=== PATIENT | male | born 1930 | race Hispanic/Latino ===

== ENCOUNTER → 2019-04-06 | Day surgery (SDC) | payer MEDICARE, OTHER ==
[2019-04-04 14:09] LABS: BASOPHILS % 0.5 % (0.0-1.0); EOSINOPHILS # (AUTO) 0.1 (0.0-0.4); EOSINOPHILS % 1.2 % (0.0-6.0); HEMATOCRIT 41.6 % (38.2-49.6); HEMOGLOBIN 14.2 g/dL (14.0-18.0); LYMPHOCYTES # (AUTO) 1.2 (1.0-3.2); LYMPHOCYTES % 19.9 % (18.0-39.1); MEAN CORPUSCULAR HEMOGLOBIN 30.6 pg (28-32); MEAN CORPUSCULAR HGB CONC 34.1 g/dL (31-35); MEAN CORPUSCULAR VOLUME 89.7 fL (81-99); MONOCYTES # (AUTO) 0.7 (0.2-0.8); MONOCYTES % 10.8 % (4.4-11.3); NEUTROPHILS # (AUTO) 4.1 (2.1-6.9); NEUTROPHILS % 67.1 % (38.7-80.0); PLATELET COUNT 118 x10e3/uL (140-360); RED BLOOD COUNT 4.64 x10e6/uL (4.3-5.7); RED CELL DISTRIBUTION WIDTH 14.6 % (11.7-14.4)
[~2019-04-06] MED LIST: CIPRO500 MG PO; FENTANYL CITRATE/PF 100MCG/2 ML INJ ONE; FINASTERIDE5 MG PO; GLIMEPIRIDE2 MG PO; LEVOTHYROXINE100 MC1 PO; LIDOCAINE HCL 2% LOCAL INJ 5 ML SDV VIAL INJ ONE; LOSARTAN-HCTZ1 EAC2 PO; LOVASTATIN20 MG PO; METOPROLOL TART50 MG PO; MIDAZOLAM HCL 2 MG/2 ML VIAL ONE; PROPOFOL IV EMULSION 10 MG/ML 50 ML VIAL ONE
--- OUTSIDE RECORDS SUMMARY | 2019-04-06 11:46 | XMS REPORT | Summary of Care ---
Author Organization Unknown Address Unknown Phone Unavailable Encounter HQ Adam_davian(NATHAN) [id number] Date(s): 05/24/14 - 05/24/[address] [facility] [address] Discharge Disposition: Home Physician Attending: Aidan Silva MD Physician_Referring: Aidan Silva MD Reason for Visit ICD 553.1 784.2 / CPT 22919 96970 Vital Signs 1 2 3 Most recent to oldest [Reference Range]: 165.1 cm (05/22/14 1:02 PM) Height 97.6 DegF (05/22/14 1:19 PM) Temperature Oral [96.4-99.1 DegF] 147 mmHg *HI* (05/24/14 11:50 AM) 146 mmHg *HI* (05/24/14 11:37 AM) 153 mmHg *HI* (05/24/14 11:00 AM) Systolic Blood Pressure [90-140 mmHg] 69 mmHg (05/24/14 11:50 AM) 70 mmHg (05/24/14 11:37 AM) 85 mmHg (05/24/14 11:00 AM) Diastolic Blood Pressure [60-90 mmHg] 20 BRMIN (05/24/14 11:50 AM) 16 BRMIN (05/24/14 11:37 AM) 13 BRMIN *LOW* (05/24/14 11:00 AM) Respiratory Rate [14-20 BRMIN] 64 bpm (05/22/14 1:19 PM) Peripheral Pulse Rate [60-100 bpm] 77.273 kg (05/22/14 1:02 PM) Weight 28.35 m2 (05/22/14 1:02 PM) Body Mass Index Problem List Condition Effective Dates Status Health Status Informant Cholesterol Resolved level(Confirmed)1 Diabetes mellitus Resolved type 2(Confirmed) Hypertension(Confirm Resolved ed) Hypothyroidism(Confi Resolved rmed) Impaired Resolved hearing(Confirmed) 1high Allergies, Adverse Reactions, Alerts Substance Reaction Severity Status NKDA Active Medications acetaminophen-hydrocodone 325 mg-5 mg oral tablet 1 tab, PO, Q6H, # 15 tab, 0 Refill(s) Start Date: 05/24/14 Status: Ordered amLODIPine 5 mg, PO, Daily, 0 Refill(s) Start Date: 05/22/14 Status: Ordered Ancef 2 gm, Route: IVPB, ONCE, Dosing Weight 77.273, kg, Start date: 05/24/14 8:24:00, Duration: 1 doses or times, Stop date: 05/24/14 8:24:00 Start Date: 05/24/14 Stop Date: 05/24/14 Status: Completed bacitracin 3.5 gm, BOTH EYES, BID, apply to upper eyelid, 0 Refill(s) Special Instructions: apply to upper eyelid Start Date: 05/22/14 Status: Ordered fentaNYL 25 microgram, Route: IVP, Q5Min, Dosing Weight 77.273, kg, PRN Pain Score 4-6, S tart date: 05/24/14 11:31:00, Duration: 4 doses or times, Stop date: Limited # o f times Start Date: 05/24/14 Stop Date: 05/24/14 Status: Discontinued flumazenil 0.2 mg, Route: IVP, PRN, Dosing Weight 77.273, kg, PRN Benzodiazepine Reversal, Initial dose, Start date: 05/24/14 11:31:00, Duration: 30 day, Stop date: 11:30:00 Start Date: 05/24/14 Stop Date: 05/24/14 Status: Discontinued hydrochlorothiazide-valsartan 12.5 mg-320 mg oral tablet 1 tab, PO, Daily, # 30 tab, 0 Refill(s) Start Date: 05/22/14 Status: Ordered hydromorphone 0.5 mg, Route: IVP, Q5Min, Dosing Weight 77.273, kg, PRN Pain Score 7-10, Start date: 05/24/14 11:31:00, Duration: 4 doses or times, Stop date: Limited # of starla es Start Date: 05/24/14 Stop Date: 05/24/14 Status: Discontinued Lactated Ringers Injection IV 1000 mL 1,000 mL, Rate: 25 ml/hr, Infuse over: 40 hr, Route: IV, Dosing Weight 77.273 kg , Total Volume: 1,000, Start date: 05/24/14 8:23:00, Duration: 30 day, Stop date : 06/23/14 8:22:00 Start Date: 05/24/14 Stop Date: 05/24/14 Status: Discontinued levothyroxine 100 mcg (0.1 mg) oral tablet 100 microgram=1 tab, PO, Daily, # 30 tab, 0 Refill(s) Start Date: 05/22/14 Status: Ordered meperidine 12.5 mg, Route: IVP, Q30Min, Dosing Weight 77.273, kg, PRN Other -See Comment, F or shivering, Start date: 05/24/14 11:31:00, Duration: 2 doses or times, Stop da te: Limited # of times Start Date: 05/24/14 Stop Date: 05/24/14 Status: Discontinued metoprolol tartrate 100 mg oral tablet 100 mg=1 tab, PO, Daily, 0 Refill(s) Start Date: 05/22/14 Status: Ordered naloxone 0.04 mg, Route: IVP, Q2MIN, Dosing Weight 77.273, kg, PRN Narcotic Reversal, Sta rt date: 05/24/14 11:31:00, Duration: 8 doses or times, Stop date: Limited # of times Start Date: 05/24/14 Stop Date: 05/24/14 Status: Discontinued [place] 10/325 oral tablet 1 tab, Route: PO, Drug Form: TAB, Dosing Weight 77.273, kg, Q4H, PRN Pain, Start date: 05/24/14 11:31:00, Duration: 30 day, Stop date: 06/23/14 11:30:00 Start Date: 05/24/14 Stop Date: 05/24/14 Status: Discontinued Ofirmev 1,000 mg, Route: IV, Drug form: INJ, ONCE, Dosing Weight 77.273, kg, PRN Pain, f or > or=50 kg, Start date: 05/24/14 11:31:00 Start Date: 05/24/14 Stop Date: 05/24/14 Status: Discontinued ondansetron 4 mg, Route: IVP, ONCE, Dosing Weight 77.273, kg, PRN Nausea & Vomiting, Start date: 05/24/14 11:31:00 Start Date: 05/24/14 Stop Date: 05/24/14 Status: Discontinued oxyCODONE 5 mg, Route: PO, Drug form: TAB, Q4H, Dosing Weight 77.273, kg, PRN Pain Score 4 -6, Start date: 05/24/14 11:31:00, Duration: 30 day, Stop date: 06/23/14 11:30:0 0 Start Date: 05/24/14 Stop Date: 05/24/14 Status: Discontinued terbinafine 250 mg oral tablet 250 mg=1 tab, PO, Daily, # 10 tab, 0 Refill(s) Start Date: 05/22/14 Stop Date: 06/01/14 Status: Ordered Results ELECTROLYTES Most recent to 1 oldest [Reference Range]: Sodium Lvl [135-145 142 mEq/L mEq/L] (05/22/14 1:28 PM) Potassium Lvl 3.9 mEq/L [3.5-5.1 mEq/L] (05/22/14 1:28 PM) Chloride Lvl [95-109 105 mEq/L mEq/L] (05/22/14 1:28 PM) CO2 [24-32 mEq/L] 32 mEq/L (05/22/14 1:28 PM) AGAP [10.0-20.0 8.9 mEq/L mEq/L] *LOW* (05/22/14 1:28 PM) CHEM PANEL Most recent to 1 oldest [Reference Range]: Creatinine Lvl 1.4 mg/dL [0.5-1.4 mg/dL] (05/22/14 1:28 PM) eGFR 46 mL/min/1.73m2 1 *NA* (05/22/14 1:28 PM) BUN [7-22 mg/dL] 18 mg/dL (05/22/14 1:28 PM) B/C Ratio [6-25] 13 (05/22/14 1:28 PM) Glucose Lvl [70-99 129 mg/dL 2 mg/dL] *HI* (05/22/14 1:28 PM) Total Protein 6.7 g/dL [6.4-8.4 g/dL] (05/22/14 1:28 PM) Albumin Lvl [3.5-5.0 4.0 g/dL g/dL] (05/22/14 1:28 PM) Globulin [2.0-4.0 2.7 g/dL g/dL] (05/22/14 1:28 PM) A/G Ratio [0.7-1.6] 1.5 (05/22/14 1:28 PM) Calcium Lvl 8.8 mg/dL [8.5-10.5 mg/dL] (05/22/14 1:28 PM) ALT [0-65 unit/L] 15 unit/L (05/22/14 1:28 PM) AST [0-37 unit/L] 19 unit/L (05/22/14 1:28 PM) Alk Phos [39-136 63 unit/L unit/L] (05/22/14 1:28 PM) Bili Total [0.2-1.3 0.6 mg/dL mg/dL] (05/22/14 1:28 PM) 1Result Comment: The eGFR is calculated using the CKD-EPI formula. In most young, healthy individuals the eGFR will be >90 mL/min/1.73m2. The eGFR declines with age. An eGFR of 60-89 may be normal in some populations, particularly the elderly, for whom the CKD-EPI formula has not been extensively validated. Use of the eGFR is not recommended in the following populations: Individuals with unstable creatinine concentrations, including patients and those with serious co-morbid conditions. Patients with extremes in muscle mass or diet. The data above are obtained from the National Kidney Disease Education Program ( NKDEP) which additionally recommends that when the eGFR is used in patients with extremes of body mass index for purposes of drug dosing, the eGFR should be mul tiplied by the estimated BMI. 2Interpretive Data: Adult reference range values reflect the clinical guidelines of the [place] [employer]. HEMATOLOGY Most recent to 1 oldest [Reference Range]: WBC [3.7-10.4 K/CMM] 4.1 K/CMM (05/22/14 1:28 PM) RBC [4.70-6.10 5.16 M/CMM M/CMM] (05/22/14 1:28 PM) Hgb [14.0-18.0 g/dL] 15.5 g/dL (05/22/14 1:28 PM) Hct [42.0-54.0 %] 46.0 % (05/22/14 1:28 PM) MCV [80.0-94.0 fL] 89.1 fL (05/22/14 1:28 PM) MCH [27.0-31.0 pg] 30.1 pg (05/22/14 1: PM) MCHC [32.0-36.0 33.8 g/dL g/dL] (05/22/14 1:28 PM) RDW [11.5-14.5 %] 14.7 % *HI* (05/22/14 1: PM) Platelet [133-450 108 K/CMM K/CMM] *LOW* (05/22/14 1:28 PM) MPV [7.4-10.4 fL] 11.4 fL *HI* (05/22/14 1:28 PM) Segs [45.0-75.0 %] 53.7 % (05/22/14 1:28 PM) Lymphocytes 26.6 % [20.0-40.0 %] (05/22/14 1:28 PM) Monocytes [2.0-12.0 18.4 % %] *HI* (05/22/14 1:28 PM) Eosinophils [0.0-4.0 0.6 % %] (05/22/14 1:28 PM) Basophils [0.0-1.0 0.7 % %] (05/22/14 1:28 PM) Segs-Bands # 2.2 K/CMM [1.5-8.1 K/CMM] (05/22/14 1:28 PM) Lymphocytes # 1.1 K/CMM [1.0-5.5 K/CMM] (05/22/14 1:28 PM) Monocytes # [0.0-0.8 0.8 K/CMM K/CMM] (05/22/14 1:28 PM) RBC Morph Normal (05/22/14 1:28 PM) Large Plt [None Slight Seen] *ABN* (05/22/14 1:28 PM) Medications Administered During Your Visit No data available for this section Immunizations No data available for this section Procedures Procedure Type Body Site Date of Procedure Related Diagnosis Blepharoplasty Cataract extraction1 Operation Replacement Tonsillectomy 1OU Social History Social History Type Response Smoking Status Former smoker, Exposure to Tobacco Smoke None, Cigarette Smoking Last 365 Days No, Reg Smoking Cessation Counseling No
--- OUTSIDE RECORDS SUMMARY | 2019-04-06 11:46 | XMS REPORT | Summary of Care ---
Author Organization Unknown Address Unknown Phone Unavailable Encounter AFIA Aguero(NATHAN) [id number] Date(s): 05/24/14 - 05/25/14 [facility] [address] Discharge Diagnosis: Acute urinary retention Discharge Disposition: Home Physician Attending: Diana Alcantara DO Reason for Visit URINARY SYMPTOMS Vital Signs 1 2 3 Most recent to oldest [Reference Range]: 165.1 cm (05/24/14 9:25 PM) Height 98.8 DegF (05/24/14 9:25 PM) Temperature Oral [96.4-99.1 DegF] 124 mmHg (05/25/14 12:15 AM) 115 mmHg (05/24/14 11:47 PM) 179 mmHg *HI* (05/24/14 9:25 PM) Systolic Blood Pressure [90-140 mmHg] 61 mmHg (05/25/14 12:15 AM) 60 mmHg (05/24/14 11:47 PM) 83 mmHg (05/24/14 9:25 PM) Diastolic Blood Pressure [60-90 mmHg] 18 BRMIN (05/25/14 12:15 AM) 18 BRMIN (05/24/14 11:47 PM) 20 BRMIN (05/24/14 9:25 PM) Respiratory Rate [14-20 BRMIN] 51 bpm *LOW* (05/25/14 12:15 AM) 52 bpm *LOW* (05/24/14 11:47 PM) 88 bpm (05/24/14 9:25 PM) Peripheral Pulse Rate [60-100 bpm] 85.455 kg (05/24/14 9:25 PM) Weight 31.35 m2 (05/24/14 9:25 PM) Body Mass Index Problem List Condition Effective Dates Status Health Status Informant Cholesterol Resolved level(Confirmed)1 Diabetes mellitus Resolved type 2(Confirmed) Hypertension(Confirm Resolved ed) Hypothyroidism(Confi Resolved rmed) Impaired Resolved hearing(Confirmed) 1high Allergies, Adverse Reactions, Alerts Substance Reaction Severity Status NKDA Active Medications Cipro 250 mg oral tablet 250 mg=1 tab, PO, Q12H, # 14 tab, 0 Refill(s) Start Date: 05/25/14 Stop Date: 06/01/14 Status: Ordered Flomax 0.4 mg oral capsule 0.4 mg=1 cap, PO, Daily, # 30 cap, 0 Refill(s) Start Date: 05/25/14 Status: Ordered morphine Sulfate 4 mg, 2 mL, Route: IVP, Drug form: INJ, ONCE, Dosing Weight 85.455, kg, Priority : STAT, Start date: 05/24/14 21:51:00, Stop date: 05/24/14 21:51:00 Notes: (Same as:MORPhine Sulfate) Start Date: 05/24/14 Stop Date: 05/24/14 Status: Completed Results ELECTROLYTES Most recent to 1 oldest [Reference Range]: Sodium Lvl [135-145 138 mEq/L mEq/L] (05/24/14 11:00 PM) Potassium Lvl 3.5 mEq/L [3.5-5.1 mEq/L] (05/24/14 11:00 PM) Chloride Lvl [95-109 101 mEq/L mEq/L] (05/24/14 11:00 PM) CO2 [24-32 mEq/L] 31 mEq/L (05/24/14 11:00 PM) AGAP [10.0-20.0 9.5 mEq/L mEq/L] *LOW* (05/24/14 11:00 PM) CHEM PANEL Most recent to 1 oldest [Reference Range]: Creatinine Lvl 1.3 mg/dL [0.5-1.4 mg/dL] (05/24/14 11:00 PM) eGFR 51 mL/min/1.73m2 1 *NA* (05/24/14 11:00 PM) BUN [7-22 mg/dL] 18 mg/dL (05/24/14 11:00 PM) Glucose Lvl [70-99 131 mg/dL 2 mg/dL] *HI* (05/24/14 11:00 PM) Calcium Lvl 8.6 mg/dL [8.5-10.5 mg/dL] (05/24/14 11:00 PM) 1Result Comment: The eGFR is calculated [...] values reflect the clinical guidelines of the [place] [employer]. URINE AND STOOL Most recent to 1 oldest [Reference Range]: UA Turbidity [Clear] Slight *ABN* (05/24/14 11:00 PM) UA Color [Yellow] Yellow *NA* (05/24/14 11:00 PM) UA pH [5.0-8.0] 6.0 (05/24/14 11:00 PM) UA Spec Grav 1.020 [<=1.030] (05/24/14 11:00 PM) UA Glucose [Negative 50 mg/dL mg/dL] *ABN* (05/24/14 11:00 PM) UA Blood [Negative] Large *ABN* (05/24/14 11:00 PM) UA Ketones [Negative Negative mg/dL mg/dL] *NA* (05/24/14 11:00 PM) UA Protein [Negative 30 mg/dL mg/dL] *ABN* (05/24/14 11:00 PM) UA Urobilinogen <=1.0 mg/dL [0.1-1.0 mg/dL] *NA* (05/24/14 11:00 PM) UA Bili [Negative] Negative *NA* (05/24/14 11:00 PM) UA Leuk Est Negative [Negative] (05/24/14 11:00 PM) UA Nitrite Negative [Negative] (05/24/14 11:00 PM) UA WBC [0-5 /HPF] 17 /HPF *HI* (05/24/14 11:00 PM) UA RBC [0-2 /HPF] >182 /HPF *HI* (05/24/14 11:00 PM) UA Bacteria [None Occasional /HPF Seen /HPF] *NA* (05/24/14 11:00 PM) UA Sq Epi [Few /LPF] Occasional /LPF *NA* (05/24/14 11:00 PM) UA Hyal Cast [0-2 3 /LPF /LPF] *HI* (05/24/14 11:00 PM) UA Mucus [None Seen Few /LPF /LPF] *NA* (05/24/14 11:00 PM) HEMATOLOGY Most recent to 1 oldest [Reference Range]: WBC [3.7-10.4 K/CMM] 6.2 K/CMM (05/24/14 11:00 PM) RBC [4.70-6.10 5.04 M/CMM M/CMM] (05/24/14 11:00 PM) Hgb [14.0-18.0 g/dL] 15.3 g/dL (05/24/14 11:00 PM) Hct [42.0-54.0 %] 44.7 % (05/24/14 11:00 PM) MCV [80.0-94.0 fL] 88.7 fL (05/24/14 11:00 PM) MCH [27.0-31.0 pg] 30.4 pg (05/24/14 11:00 PM) MCHC [32.0-36.0 34.3 g/dL g/dL] (05/24/14 11:00 PM) RDW [11.5-14.5 %] 15.1 % *HI* (05/24/14 11:00 PM) Platelet [133-450 108 K/CMM K/CMM] *LOW* (05/24/14 11:00 PM) MPV [7.4-10.4 fL] 10.7 fL *HI* (05/24/14 11:00 PM) Segs [45.0-75.0 %] 70.4 % (05/24/14 11:00 PM) Lymphocytes 19.5 % [20.0-40.0 %] *LOW* (05/24/14 11:00 PM) Monocytes [2.0-12.0 9.6 % %] (05/24/14 11:00 PM) Eosinophils [0.0-4.0 0.2 % %] (05/24/14 11:00 PM) Basophils [0.0-1.0 0.3 % %] (05/24/14 11:00 PM) Segs-Bands # 4.4 K/CMM [1.5-8.1 K/CMM] (05/24/14 11:00 PM) Lymphocytes # 1.2 K/CMM [1.0-5.5 K/CMM] (05/24/14 11:00 PM) Monocytes # [0.0-0.8 0.6 K/CMM K/CMM] (05/24/14 11:00 PM) Medications Administered During Your Visit No data available for this section Immunizations No data available for this section Social History Social History Type Response Smoking Status Former smoker, Exposure to Tobacco Smoke None, Cigarette Smoking Last 365 Days No, Reg Smoking Cessation Counseling No
--- OUTSIDE RECORDS SUMMARY | 2019-04-06 11:46 | XMS REPORT | Summary of Care ---
Author Author Joellen Jessica M.A. Unknown Address Unknown Phone Unavailable Care Team Providers Care Healthcare Applications Analyst Name Role Phone BAMBI BANEGAS M.D. Unavailable Unavailable Unavailable Unavailable Functional Status Name Dates Details Functional status health issues are not documented Status: Name Dates Details Cognitive status health issues are not documented Status: Problems Name Dates Details Limb pain (729.5, M79.609) Status: Active Medications Name Dates Details Diclofenac Sodium 1 % Transdermal Gel APPLY 4 GRAMS TOPICALLY TO AFFECTED AREA (LOWER EXTREMITIES) 4 TIMES DAILY. DO NOT APPLY MORE THAN 16 GRAMS DAILY TO ANY ONE AFFECTED JOINT Quantity: 5 BAMBI BANEGAS M.D. * Start : 03-Mar-2018 Active 100 GM Tube Meloxicam 7.5 MG Oral Tablet TAKE ONE TABLET ONCE A DAY NEEDED FOR PAIN * Quantity: 30 Refills: 3 BAMBI BANEGAS M.D. * Start : 03-Mar-2018 Active Allergies and Adverse Reactions Name Dates Details No Known Drug Allergies (Allergy) Status: Active Procedures Procedure Dates Details Procedures not documented Immunization Name Dates Details Immunizations not documented Social History Name Dates Details Unknown if ever smoked Vital Signs Date Test Result Details [id number] Height 65 in Status: Weight 170 lb Status: Body Mass Index Calculated 28.29 kg/m2 Status: Body Surface Area Calculated 1.85 m2 Status: Results Date Description Value Details [id number] [U] XRAY KNEE 4 OR MORE VWS LEFT [id number] XR KNEE 4 OR MORE VWS LEFT Images acquired, not reported on this accession number. Plan of Care Name Dates Details Planned Observations Planned Goals not documented Planned Encounters Appointment; BAMBI BANEGAS M.D. On: 09-Jun-2018 15:00 Interventions Provided Medication Changes* Diclofenac Sodium 1 % Transdermal Gel - Start * Meloxicam 7.5 MG Oral Tablet - Start Labs/Procedures/Imaging* [U] XRAY KNEE 4 OR MORE VWS LEFT [id number]; Done: 03 Mar 2018 Instructions Name Dates Details Instructions not documented Encounters Appointment; BAMBI BANEGAS M.D. Encounter Diagnosis: Problem not documented On: 03-Mar-2018 15:00
--- OUTSIDE RECORDS SUMMARY | 2019-04-06 11:46 | XMS REPORT | Continuity of Care Document ---
Author Author [facility] Interface Address Unknown Phone Unavailable Problems Problem Status Onset Date Classification Date Reported Comments Source Chronic kidney disease, stage 3 01/16/2018 04/19/2018 [facility] R60.0, M79.605 Active 01/11/2018 [facility] DIZZINESS, CHEST PAIN, HTN Active 05/03/2015 [facility] Discharge Diagnosis: Acute urinary retention 05/25/2014 05/28/2014 [facility] URINARY SYMPTOMS Active 05/24/2014 [facility] ICD 553.1 784.2 / CPT 10045 30321 Active 05/15/2014 [facility] Localized edema 04/19/2018 [facility] Pain in left leg 04/19/2018 [facility] Cholesterol level<sup>1</sup> Resolved Problem 04/19/2018 high [facility] Diabetes mellitus type 2 Resolved Problem 04/19/2018 [facility] Hypertension Resolved Problem 04/19/2018 [facility] Hypothyroidism Resolved Problem 04/19/2018 [facility] Impaired hearing Resolved Problem 04/19/2018 [facility] UMBILICAL HERNIA Active [facility] Datatype(DG1.4)- Active [facility] LOCALIZED EDEMA Active [facility] PAIN IN LEFT LEG Active [facility] Medications Medication Details Route Status Patient Instructions Ordering Provider Order Date Source Ciprofloxacin 250 MG Oral Tablet [Cipro] 250 mg=1 tab, PO, Q12H, # 14 tab, 0 Refill(s) Active 05/25/2014 [facility] Tamsulosin hydrochloride 0.4 MG Oral Capsule [Flomax] 0.4 mg=1 cap, PO, Daily, # 30 cap, 0 Refill(s) Active 05/25/2014 [facility] Morphine 4 mg, 2 mL, Route: IVP, Drug form: INJ, ONCE, Dosing Weight 85.455, kg, Priority: STAT, Start date: 05/24/14 21:51:00, Stop date: 05/24/14 21:51:00Notes: (Same as:MORPhine Sulfate) Inactive 05/25/2014 [facility] Acetaminophen 325 MG / Hydrocodone Bitartrate 10 MG Oral Tablet [[place] 10/325] 1 tab, Route: PO, Drug Form: TAB, Dosing Weight 77.273, kg, Q4H, PRN Pain, Start date: 05/24/14 11:31:00, Duration: 30 day, Stop date: 06/23/14 11:30:00 Inactive 05/24/2014 [facility] Ofirmev 1,000 mg, Route: IV, Drug form: INJ, ONCE, Dosing Weight 77.273, kg, PRN Pain, for > or=50 kg, Start date: 05/24/14 11:31:00 Inactive 05/24/2014 [facility] Meperidine 12.5 mg, Route: IVP, Q30Min, Dosing Weight 77.273, kg, PRN Other -See Comment, For shivering, Start date: 05/24/14 11:31:00, Duration: 2 doses or times, Stop date: Limited # of times Inactive 05/24/2014 [facility] Flumazenil 0.2 mg, Route: IVP, PRN, Dosing Weight 77.273, kg, PRN Benzodiazepine Reversal, Initial dose, Start date: 05/24/14 11:31:00, Duration: 30 day, Stop date: 06/23/14 11:30:00 Inactive 05/24/2014 [facility] Oxycodone 5 mg, Route: PO, Drug form: TAB, Q4H, Dosing Weight 77.273, kg, PRN Pain Score 4-6, Start date: 05/24/14 11:31:00, Duration: 30 day, Stop date: 06/23/14 11:30:00 Inactive 05/24/2014 [facility] Naloxone 0.04 mg, Route: IVP, Q2MIN, Dosing Weight 77.273, kg, PRN Narcotic Reversal, Start date: 05/24/14 11:31:00, Duration: 8 doses or times, Stop date: Limited # of times Inactive 05/24/2014 [facility] Hydromorphone 0.5 mg, Route: IVP, Q5Min, Dosing Weight 77.273, kg, PRN Pain Score 7-10, Start date: 05/24/14 11:31:00, Duration: 4 doses or times, Stop date: Limited # of times Inactive 05/24/2014 [facility] Fentanyl 25 microgram, Route: IVP, Q5Min, Dosing Weight 77.273, kg, PRN Pain Score 4-6, Start date: 05/24/14 11:31:00, Duration: 4 doses or times, Stop date: Limited # of times Inactive 05/24/2014 [facility] Ondansetron 4 mg, Route: IVP, ONCE, Dosing Weight 77.273, kg, PRN Nausea & Vomiting, Start date: 05/24/14 11:31:00 Inactive 05/24/2014 [facility] Acetaminophen 325 MG / Hydrocodone Bitartrate 5 MG Oral Tablet 1 tab, PO, Q6H, # 15 tab, 0 Refill(s) Active 05/24/2014 [facility] Ancef 2 gm, Route: IVPB, ONCE, Dosing Weight 77.273, kg, Start date: 05/24/14 8:24:00, Duration: 1 doses or times, Stop date: 05/24/14 8:24:00 Inactive 05/24/2014 [facility] Calcium Chloride 0.0014 MEQ/ML / Potassium Chloride 0.004 MEQ/ML / Sodium Chloride 0.103 MEQ/ML / Sodium Lactate 0.028 MEQ/ML Injectable Solution 1,000 mL, Rate: 25 ml/hr, Infuse over: 40 hr, Route: IV, Dosing Weight 77.273 kg, Total Volume: 1,000, Start date: 05/24/14 8:23:00, Duration: 30 day, Stop date: 06/23/14 8:22:00 Inactive 05/24/2014 [facility] terbinafine 250 mg oral tablet 250 mg=1 tab, PO, Daily, # 10 tab, 0 Refill(s) Active 05/22/2014 [facility] Amlodipine 5 mg, PO, Daily, 0 Refill(s) Active 05/22/2014 [facility] Bacitracin 3.5 gm, BOTH EYES, BID, apply to upper eyelid, 0 Refill(s)Special Instructions: apply to upper eyelid Active 05/22/2014 [facility] levothyroxine 100 mcg (0.1 mg) oral tablet 100 microgram=1 tab, PO, Daily, # 30 tab, 0 Refill(s) Active 05/22/2014 [facility] Hydrochlorothiazide 12.5 MG / valsartan 320 MG Oral Tablet 1 tab, PO, Daily, # 30 tab, 0 Refill(s) Active 05/22/2014 [facility] metoprolol tartrate 100 mg oral tablet 100 mg=1 tab, PO, Daily, 0 Refill(s) Active 05/22/2014 [facility] Allergies, Adverse Reactions, Alerts Substance Category Reaction Severity Reaction type Status Date Reported Comments Source Immunizations Immunization Date Given Site Status Last Updated Comments Source Results Order Name Results Value Reference Range Date Interpretation Comments Source Ext Lower Venous Doppler Unilat US Ext Lower Venous Doppler Unilat US Clinical Indication: - R60.0 Localized edema , left leg pain Comparison: None TECHNIQUE: Sonographic evaluation of the left lower extremity veins was performed using high resolution B-mode imaging, along with pulse and color Doppler imaging. FINDINGS: The common femoral vein, superficial femoral vein, popliteal vein and visualized posterior tibial/calf veins are patent. There is no echogenic debris to suggest deep venous thrombosis. The saphenofemoral junction is unremarkable. IMPRESSION: No sonographic evidence for deep vein thrombosis of the left lower extremity. SL: [id number] 01/11/2018 - - Read by: Simon Langley MD Dictated Date/time: 01/11/18 14:18 Electronically Signed by: Simon Langley MD 01/11/18 14:18 FINAL REPORT [facility] eGFR 51 mL/min/1.73m2 05/25/2014 1Result Comment: The eGFR is calculated using [...] from the National Kidney Disease Education Program (NKDEP) which additionally recommends that when the eGFR is used in patients with extremes of body mass index for purposes of drug dosing, the eGFR should be multiplied by the estimated BMI. [facility] CHEM PANEL Creatinine Lvl 1.3 mg/dL 0.5 - 1.4 05/25/2014 [facility] CHEM PANEL CO2 31 meq/L 24 - 32 05/25/2014 [facility] CHEM PANEL Chloride Lvl 101 meq/L 95 - 109 05/25/2014 [facility] CHEM PANEL Potassium Lvl 3.5 meq/L 3.5 - 5.1 05/25/2014 [facility] CHEM PANEL Sodium Lvl 138 meq/L 135 - 145 05/25/2014 [facility] CHEM PANEL Glucose Lvl 131 mg/dL 70 - 99 05/25/2014 2Interpretive Data: Adult reference range values reflect the clinical guidelines of the [place] [employer]. [facility] CHEM PANEL BUN 18 mg/dL 7 - 22 05/25/2014 [facility] CHEM PANEL Calcium Lvl 8.6 mg/dL 8.5 - 10.5 05/25/2014 [facility] CHEM PANEL AGAP 9.5 meq/L 10.0 - 20.0 05/25/2014 [facility] HEMATOLOGY Lymphocytes # 1.2 K/CMM 1.0 - 5.5 05/25/2014 [facility] HEMATOLOGY Monocytes # 0.6 K/CMM 0.0 - 0.8 05/25/2014 [facility] HEMATOLOGY Eosinophils 0.2 % 0.0 - 4.0 05/25/2014 [facility] HEMATOLOGY Basophils 0.3 % 0.0 - 1.0 05/25/2014 [facility] HEMATOLOGY Segs-Bands # 4.4 K/CMM 1.5 - 8.1 05/25/2014 [facility] HEMATOLOGY Segs 70.4 % 45.0 - 75.0 05/25/2014 [facility] Lymphocytes 19.5 % 20.0 - 40.0 05/25/2014 [facility] HEMATOLOGY Monocytes 9.6 % 2.0 - 12.0 05/25/2014 [facility] MCV 88.7 fL 80.0 - 94.0 05/25/2014 [facility] Hct 44.7 % 42.0 - 54.0 05/25/2014 [facility] Hgb 15.3 g/dL 14.0 - 18.0 05/25/2014 [facility] MCHC 34.3 g/dL 32.0 - 36.0 05/25/2014 [facility] MCH 30.4 pg 27.0 - 31.0 05/25/2014 [facility] MPV 10.7 fL 7.4 - 10.4 05/25/2014 [facility] RDW 15.1 % 11.5 - 14.5 05/25/2014 [facility] Platelet 108 K/CMM 133 - 450 05/25/2014 [facility] WBC 6.2 K/CMM 3.7 - 10.4 05/25/2014 [facility] HEMATOLOGY RBC 5.04 M/CMM 4.70 - 6.10 05/25/2014 [facility] URINE AND STOOL UA Hyal Cast 3 /LPF 0 - 2 05/25/2014 [facility] URINE AND STOOL UA Bacteria Occasional /HPF None Seen /HPF 05/25/2014 [facility] URINE AND STOOL UA Mucus Few /LPF None Seen /LPF 05/25/2014 [facility] URINE AND STOOL UA RBC null 0 - 2 05/25/2014 [facility] URINE AND STOOL UA Urobilinogen <=1.0 mg/dL 0.1 - 1.0 05/25/2014 [facility] URINE AND STOOL UA WBC 17 /HPF 0 - 5 05/25/2014 [facility] URINE AND STOOL UA Nitrite Negative (05/24/14 11:00 PM) Negative 05/25/2014 [facility] URINE AND STOOL UA Leuk Est Negative (05/24/14 11:00 PM) Negative 05/25/2014 [facility] URINE AND STOOL UA Sq Epi Occasional /LPF Few /LPF 05/25/2014 [facility] URINE AND STOOL UA Blood Large *ABN* (05/24/14 11:00 PM) Negative 05/25/2014 [facility] URINE AND STOOL UA Bili Negative *NA* (05/24/14 11:00 PM) Negative 05/25/2014 [facility] URINE AND STOOL UA Protein 30 mg/dL Negative mg/dL 05/25/2014 [facility] URINE AND STOOL UA Ketones Negative mg/dL Negative mg/dL 05/25/2014 [facility] URINE AND STOOL UA Glucose 50 mg/dL Negative mg/dL 05/25/2014 [facility] URINE AND STOOL UA Turbidity Slight *ABN* (05/24/14 11:00 PM) Clear 05/25/2014 [facility] URINE AND STOOL UA Spec Grav 1.020 <=1.030 05/25/2014 [facility] URINE AND STOOL UA Color Yellow *NA* (05/24/14 11:00 PM) Yellow 05/25/2014 [facility] URINE AND STOOL UA pH 6.0 5.0 - 8.0 05/25/2014 [facility] CHEM PANEL eGFR 46 mL/min/1.73m2 05/22/2014 1Result Comment: The eGFR is calculated using [...] from the National Kidney Disease Education Program (NKDEP) which additionally recommends that when the eGFR is used in patients with extremes of body mass index for purposes of drug dosing, the eGFR should be multiplied by the estimated BMI. [facility] CHEM PANEL AST 19 unit/L 0 - 37 05/22/2014 [facility] CHEM PANEL Bili Total 0.6 mg/dL 0.2 - 1.3 05/22/2014 [facility] CHEM PANEL Alk Phos 63 unit/L 39 - 136 05/22/2014 [facility] CHEM PANEL ALT 15 unit/L 0 - 65 05/22/2014 [facility] CHEM PANEL Albumin Lvl 4.0 g/dL 3.5 - 5.0 05/22/2014 [facility] CHEM PANEL CO2 32 meq/L 24 - 32 05/22/2014 [facility] CHEM PANEL Calcium Lvl 8.8 mg/dL 8.5 - 10.5 05/22/2014 [facility] CHEM PANEL Total Protein 6.7 g/dL 6.4 - 8.4 05/22/2014 [facility] CHEM PANEL Creatinine Lvl 1.4 mg/dL 0.5 - 1.4 05/22/2014 [facility] CHEM PANEL Sodium Lvl 142 meq/L 135 - 145 05/22/2014 [facility] CHEM PANEL Potassium Lvl 3.9 meq/L 3.5 - 5.1 05/22/2014 [facility] CHEM PANEL Chloride Lvl 105 meq/L 95 - 109 05/22/2014 [facility] CHEM PANEL BUN 18 mg/dL 7 - 22 05/22/2014 [facility] CHEM PANEL Glucose Lvl 129 mg/dL 70 - 99 05/22/2014 2Interpretive Data: Adult reference range values reflect the clinical guidelines of the [place] [employer]. [facility] CHEM PANEL Globulin 2.7 g/dL 2.0 - 4.0 05/22/2014 [facility] CHEM PANEL A/G Ratio 1.5 0.7 - 1.6 05/22/2014 [facility] CHEM PANEL B/C Ratio 13 6 - 25 05/22/2014 [facility] CHEM PANEL AGAP 8.9 meq/L 10.0 - 20.0 05/22/2014 [facility] MPV 11.4 fL 7.4 - 10.4 05/22/2014 [facility] MCHC 33.8 g/dL 32.0 - 36.0 05/22/2014 [facility] RDW 14.7 % 11.5 - 14.5 05/22/2014 [facility] Platelet 108 K/CMM 133 - 450 05/22/2014 [facility] Hct 46.0 % 42.0 - 54.0 05/22/2014 [facility] MCV 89.1 fL 80.0 - 94.0 05/22/2014 [facility] MCH 30.1 pg 27.0 - 31.0 05/22/2014 [facility] Hgb 15.5 g/dL 14.0 - 18.0 05/22/2014 [facility] RBC 5.16 M/CMM 4.70 - 6.10 05/22/2014 [facility] WBC 4.1 K/CMM 3.7 - 10.4 05/22/2014 [facility] Large Plt Slight *ABN* (05/22/14 1:28 PM) None Seen 05/22/2014 [facility] Monocytes # 0.8 K/CMM 0.0 - 0.8 05/22/2014 [facility] Basophils 0.7 % 0.0 - 1.0 05/22/2014 [facility] Eosinophils 0.6 % 0.0 - 4.0 05/22/2014 [facility] Segs-Bands # 2.2 K/CMM 1.5 - 8.1 05/22/2014 [facility] Lymphocytes # 1.1 K/CMM 1.0 - 5.5 05/22/2014 [facility] Monocytes 18.4 % 2.0 - 12.0 05/22/2014 [facility] RBC Morph Normal (05/22/14 1:28 PM) 05/22/2014 [facility] Segs 53.7 % 45.0 - 75.0 05/22/2014 [facility] Lymphocytes 26.6 % 20.0 - 40.0 05/22/2014 [facility] Chest 2 views Chest 2 views PA and LATERAL CHEST (2 views) HISTORY: Coughing Comparison is made to 12/05/2004. FINDINGS: The lungs are clear. The heart and pulmonary vasculature are within normal limits. There are no pleural effusions. There are mild scattered degenerative changes in the thoracic spine. Otherwise, the regional skeleton is unremarkable. CONCLUSION: 1. No active disease. Coding: Chest 2 views CPT Code: 78680 SL: 16 Prasad Hernandez M.D. 05/22/2014 - - Read by: Prasad Hernandez MD Dictated Date/time: 05/22/14 13:47 Electronically Signed by: Prasad Hernandez MD 05/22/14 13:47 FINAL REPORT [facility] Vital Signs Vital Sign Value Date Comments Source Diastolic (mm Hg) 61 05/25/2014 [facility] Systolic (mm Hg) 124 05/25/2014 [facility] Respitory Rate 18 05/25/2014 [facility] Heart Rate 51 05/25/2014 [facility] Heart Rate 52 05/25/2014 [facility] Respitory Rate 18 05/25/2014 [facility] Diastolic (mm Hg) 60 05/25/2014 [facility] Systolic (mm Hg) 115 05/25/2014 [facility] Height 165.1 cm 05/25/2014 [facility] BMI Calculated 31.35 05/25/2014 [facility] Weight 85.455 05/25/2014 [facility] Diastolic (mm Hg) 83 05/25/2014 [facility] Systolic (mm Hg) 179 05/25/2014 [facility] Respitory Rate 20 05/25/2014 [facility] Heart Rate 88 05/25/2014 [facility] Temperature Oral (F) 98.8 F 05/25/2014 [facility] Systolic (mm Hg) 147 05/24/2014 [facility] Respitory Rate 20 05/24/2014 [facility] Diastolic (mm Hg) 69 05/24/2014 [facility] Systolic (mm Hg) 146 05/24/2014 [facility] Respitory Rate 16 05/24/2014 [facility] Diastolic (mm Hg) 70 05/24/2014 [facility] Respitory Rate 13 05/24/2014 [facility] Systolic (mm Hg) 153 05/24/2014 [facility] Diastolic (mm Hg) 85 05/24/2014 [facility] Temperature Oral (F) 97.6 F 05/22/2014 [facility] Heart Rate 64 05/22/2014 [facility] Height 165.1 cm 05/22/2014 [facility] BMI Calculated 28.35 05/22/2014 [facility] Weight 77.273 05/22/2014 [facility] Encounters Location Location Details Encounter Type Encounter Number Reason For Visit Attending Provider ADM Date DC Date Status Source [facility] OBS Day Surgery [id number] Aidan Silva 05/24/2014 05/24/2014 [facility] [id number] Diana Alcantara 05/25/2014 05/25/2014 [facility] Outpatient [id number] Pratima Myrna 01/11/2018 01/12/2018 [facility] Procedures Procedure Code Date Perfomer Comments Source Blepharoplasty [id number] [facility] Cataract extraction<sup>1</sup> [id number] [facility] Operation [id number] [facility] Replacement [id number] [facility] Tonsillectomy [id number] [facility]
--- OUTSIDE RECORDS SUMMARY | 2019-04-06 11:46 | XMS REPORT | Summary of Care ---
Author Author [facility] Organization [facility] Address Unknown Phone Unavailable Encounter [facility] More(FIN) [id number] Date(s): 01/11/18 - 01/11/18 [facility] [address] [place] [address]- [phone] Encounter Diagnosis Chronic kidney disease, stage 3 (moderate) (Final) - 01/15/18 Localized edema (Final) - Pain in left leg (Final) - Discharge Disposition: Home or Self Care Attending Physician: Pratima Norris MD Referring Physician: Pratima Norris MD Vital Signs No data available for this section Problem List Condition Effective Dates Status Health Status Informant Cholesterol Resolved level(Confirmed)1 Diabetes mellitus Resolved type 2(Confirmed) Hypertension(Confirm Resolved ed) Hypothyroidism(Confi Resolved rmed) Impaired Resolved hearing(Confirmed) 1high Allergies, Adverse Reactions, Alerts Substance Reaction Severity Status NKDA Active Medications No data available for this section Results No data available for this section Immunizations No data available for this section Procedures Procedure Date Related Diagnosis Body Site Status Blepharoplasty Completed Cataract extraction1 Completed Operation Completed Replacement Completed Tonsillectomy Completed 1OU Social History Social History Type Response Smoking Status Former smoker; Exposure to Tobacco Smoke None; Cigarette Smoking Last 365 Days No; Reg Smoking Cessation Counseling No entered on: 05/22/14 Assessment and Plan No data available for this section
[2019-04-06 18:50] VITALS: BP 138/72
--- NOTE | 2019-04-07 00:28 | Operative Report ---
DATE OF PROCEDURE: 04/06/2019 SURGEON: Sebas Leung MD PROCEDURE: Colonoscopy and polypectomy with hemoclipping. INDICATION FOR COLONOSCOPY: Rectal pain. MEDICATIONS: The patient was done under MAC, please see anesthesiologist's note. PROCEDURE IN DETAIL: With the patient in left lateral decubitus position, flexible fiberoptic Olympus colonoscope was inserted into the rectum with ease and advanced all the way to the cecum. Mucosa overlying the cecum appeared to be within normal limits. Two minute polyps in the proximal ascending colon were removed per cold snare polypectomy. Two large polyps were noted in the mid and distal ascending colon. Those were removed per snare electrocautery and both sides were hemoclipped x2. Two polyps were removed per hot snare electrocautery from the transverse colon. Diverticular disease was noted to involve the distal descending and the sigmoid. Two minute polyps were hot biopsied from the rectum. The scope was then retroflexed into the distal rectum and moderate-sized internal hemorrhoids were noted, none of which was actively bleeding. The scope was then straightened out, it was subsequently withdrawn. The patient tolerated procedure well. IMPRESSION: 1. Ascending colon polyps x3, one cold snared and two large polyps removed per hot snare and each polypectomy site was hemoclipped x2. 2. Transverse colon polyps x2 hot snared. 3. Diverticulosis. 4. Rectal polyps x2 hot biopsied. 5. Internal hemorrhoids, none actively bleeding. PLAN: Follow up histology. Initiate high-fiber, low-fat diet. Initiate high-fiber supplement. Timing of followup colonoscopy if necessary pending pathology report. Sebas Leung MD [facility] /[id number] cc: Pratima Norris MD
== END | disposition home or self-care (01) ==
LOC: OR 11:36
PROVIDERS: ATTEND Internal Medicine Gastroenterology
DX: Z12.11 Encounter for screening for malignant neoplasm of colon (principal); D12.2 Benign neoplasm of ascending colon; D12.3 Benign neoplasm of transverse colon; K62.1 Rectal polyp; K57.30 Diverticulosis of large intestine without perforation or abscess without bleeding; K64.8 Other hemorrhoids; I10 Essential (primary) hypertension; M19.90 Unspecified osteoarthritis, unspecified site; E78.5 Hyperlipidemia, unspecified; E03.9 Hypothyroidism, unspecified; E11.9 Type 2 diabetes mellitus without complications; Z01.810 Encounter for preprocedural cardiovascular examination; Z01.812 Encounter for preprocedural laboratory examination; Z79.84 Long term (current) use of oral hypoglycemic drugs; Z68.28 Body mass index [BMI] 28.0-28.9, adult
CPT/HCPCS: 36415 ×2; 45384; 45385; 82948; 85025; 93005; J2001; J2250; J2704

== ENCOUNTER 2020-01-17 09:23 | Emergency (ER) | payer MEDICARE, OTHER ==
[~2020-01-17] VITALS: Ht 165.1 cm; Wt 78.0 kg
[~2020-01-17 09:23] MED LIST changes: -FENTANYL CITRATE/PF 100MCG/2 ML INJ ONE; -LIDOCAINE HCL 2% LOCAL INJ 5 ML SDV VIAL INJ ONE; -MIDAZOLAM HCL 2 MG/2 ML VIAL ONE; -PROPOFOL IV EMULSION 10 MG/ML 50 ML VIAL ONE
[2020-01-17 09:54] VITALS: BP 159/99
[2020-01-17 09:55] LABS: CLARITY,URINE CLEAR (CLEAR); COLOR,URINE YELLOW (YELLOW); LEUKOCYTE ESTERASE ,URINE NEGATIVE (NEGATIVE)
[2020-01-17 09:56] LABS: BACTERIA,URINE RARE /HPF; BILIRUBIN,URINE NEGATIVE (NEGATIVE); EPITHELIAL CELLS,URINE FEW /LPF; KETONES,URINE NEGATIVE (NEGATIVE); NITRITE,URINE NEGATIVE (NEGATIVE); PROTEIN,URINE DIPSTICK TRACE (NEGATIVE); URINE UROBILINOGEN 0.2 mg/dL (0.2 - 1)
--- NOTE | 2020-01-17 11:07 | Diagnostic Imaging Report ---
TECHNIQUE: Grayscale, color Doppler, and spectral Doppler ultrasound of the scrotum and testicles. INDICATION: 89-year-old man with right testicular pain. COMPARISON: None. FINDINGS: RIGHT TESTIS: Measures 4.4 x 2.1 x 3.3 cm. Normal echotexture without focal lesions. LEFT TESTIS: Prior left orchiectomy. VASCULAR: Arterial waveforms detected in the right testis. No varicocele. EPIDIDYMIDES: Right epididymis is normal in size. 0.3 x 0.4 x 0.4 cm right epididymal cyst/spermatocele. SCROTUM: Trace right hydrocele. Fluid fills the potential space in the left hemiscrotum. IMPRESSION: Unremarkable right testis. Trace right hydrocele. Subcentimeter right epididymal cyst/hematocele. Prior left orchiectomy. Fluid fills the potential space in the left hemiscrotum. Signed by: Sulema Gonzalez MD on 01/17/2020 11:03 AM
== END 2020-01-17 11:20 | disposition home or self-care (01) ==
LOC: ER 09:23
DX: R30.0 Dysuria (principal); N50.811 Right testicular pain; N43.3 Hydrocele, unspecified
CPT/HCPCS: 76870; 81001; 93976; 99283

== ENCOUNTER → 2020-06-20 | Outpatient (CLI) | payer OTHER, MEDICARE ==
[2020-06-20 11:28] LABS: BASOPHILS % 0.3 % (0.0-1.0); EOSINOPHILS % 0.5 % (0.0-6.0); HEMATOCRIT 43.2 % (38.2-49.6); HEMOGLOBIN 14.7 g/dL (14.0-18.0); LYMPHOCYTES # (AUTO) 1.3 (1.0-3.2); LYMPHOCYTES % 16.8 % (18.0-39.1); MEAN CORPUSCULAR HEMOGLOBIN 30.1 pg (28-32); MEAN CORPUSCULAR VOLUME 88.5 fL (81-99); MONOCYTES # (AUTO) 0.8 (0.2-0.8); MONOCYTES % 10.5 % (4.4-11.3); NEUTROPHILS # (AUTO) 5.3 (2.1-6.9); NEUTROPHILS % 71.2 % (38.7-80.0); PLATELET COUNT 125 x10e3/uL (140-360); RED BLOOD COUNT 4.88 x10e6/uL (4.3-5.7); RED CELL DISTRIBUTION WIDTH 14.2 % (11.7-14.4)
== END | disposition home or self-care (01) ==
LOC: RAD 05:00 → OR 06-25 06:05 → EDSTATUS 06-25 07:30
PROVIDERS: ATTEND Internal Medicine Gastroenterology
DX: R10.9 Unspecified abdominal pain (principal); R14.0 Abdominal distension (gaseous); Z01.810 Encounter for preprocedural cardiovascular examination; Z01.812 Encounter for preprocedural laboratory examination; Z11.59 Encounter for screening for other viral diseases; Z53.9 Procedure and treatment not carried out, unspecified reason
CPT/HCPCS: 36415; 85025; 93005; U0002

== ENCOUNTER → 2020-06-27 | Outpatient (CLI) | payer OTHER ==
--- NOTE | 2020-06-27 17:41 | Diagnostic Imaging Report ---
Hepatobiliary Scan with Gallbladder Ejection Fraction Reason for exam: Upper abdominal pain Report: Following intravenous administration of 6.6millicuries of Tc-99m mebrofenin, dynamic images of the abdomen in the anterior projection were obtained through 56 minutes. Sincalide (CCK analog) 1.6 micrograms was administered intravenously over 30 minutes with additional imaging for determination of gallbladder ejection fraction. Perfusion to the liver is normal. Extraction of tracer from the blood pool by the liver parenchyma is normal. Tracer is seen promptly within the biliary tract. The gallbladder begins to fill by 10 minutes post-injection of tracer and fills adequately. Tracer is seen in the small bowel by 35 minutes. The gallbladder ejection fraction with administration of sincalide is 53% (normal greater than 40%). Impression: 1. Filling of the gallbladder excludes the diagnosis of acute cystic duct obstruction/acute cholecystitis. 2. Normal gallbladder ejection fraction of 53% does not support the clinical diagnosis of chronic cholecystitis/gallbladder dyskinesia. Signed by: Dr. Olivia Kimble M.D. on 06/27/2020 5:37 PM
== END ==
LOC: NM 09:16
PROVIDERS: ATTEND Internal Medicine Gastroenterology
DX: R10.10 Upper abdominal pain, unspecified (principal)
CPT/HCPCS: 78227; A9537

== ENCOUNTER → 2020-07-19 | Day surgery (SDC) | payer MEDICARE, OTHER ==
[~2020-07-19] MED LIST changes: +ACETAMINOPHEN PO; +ALLERGY RELIEF1 EAC2 PO; +ESCITALOPRAM OX10 MG PO; +ETOMIDATE 2 MG/ML 10 ML INJ IV ONE; +PANTOPRAZOLE SO40 MG PO; +PROPOFOL IV EMULSION 10 MG/ML 20 ML VIAL ONE; +TELMISARTAN-HC1 EAC2 PO; +TRAZODONE HCL50 MG PO
[2020-07-19 13:45] VITALS: BP 144/77
--- NOTE | 2020-07-19 13:55 | Operative Report ---
DATE OF PROCEDURE: 07/19/2020 SURGEON: Sebas Leung MD PROCEDURE: EGD with biopsies. INDICATIONS FOR EGD: Upper abdominal pain, bloating. MEDICATIONS: The patient was done under MAC, please see anesthesiologist's note. PROCEDURE IN DETAIL: With the patient in the left lateral decubitus position, the flexible fiberoptic Olympus gastroscope was introduced into the esophagus under direct visualization without any difficulty. There was some patchy erythema noted in distal esophagus. A minute nodule was noted at the GE junction, that was biopsied. The scope was then advanced with ease into the stomach, traversing a small sliding hiatal hernia. Mucosa overlying the antrum and the body revealed some patchy erythema and [id number] edema; and biopsies were obtained, sent to stain for H pylori. Pylorus was of normal contour and shape, it was intubated with ease and the scope was advanced all the way to the second portion of the duodenum. The scope was then withdrawn slowly, mucosa overlying the proximal second portion and the duodenal bulb appeared to be within normal limits. The scope was then withdrawn back into the stomach and retroflexed, and mucosa overlying the fundus and cardia appeared to be within normal. The scope was then straightened out, it was subsequently withdrawn. The patient tolerated the procedure well. IMPRESSION: 1. Distal esophagitis, mild. 2. Minute nodule, GE junction, biopsied. 3. Small sliding hiatal hernia. 4. Gastritis, biopsied, biopsies sent to stain for H. pylori. PLAN: 1. Follow up histology. 2. Continue Protonix 40 mg one p.o. q.a.m. a.c. 3. Add Carafate 1 g p.o. a.c. t.i.d. and at bedtime. Sebas Leung MD [facility] [place] /[id number] cc: Pratima Norris MD
== END | disposition home or self-care (01) ==
LOC: OR 10:26
PROVIDERS: ATTEND Internal Medicine Gastroenterology
DX: K29.50 Unspecified chronic gastritis without bleeding (principal); K31.89 Other diseases of stomach and duodenum; K20.9 Esophagitis, unspecified; K44.9 Diaphragmatic hernia without obstruction or gangrene; K21.9 Gastro-esophageal reflux disease without esophagitis; K63.5 Polyp of colon; K40.90 Unilateral inguinal hernia, without obstruction or gangrene, not specified as recurrent; E11.9 Type 2 diabetes mellitus without complications; I10 Essential (primary) hypertension; E78.6 Lipoprotein deficiency; I44.0 Atrioventricular block, first degree; F32.9 Major depressive disorder, single episode, unspecified; Z01.812 Encounter for preprocedural laboratory examination; Z11.59 Encounter for screening for other viral diseases; Z79.84 Long term (current) use of oral hypoglycemic drugs
CPT/HCPCS: 36415; 43239; 82948; J2704; U0002

== ENCOUNTER → 2020-08-06 | Outpatient (CLI) | payer MEDICARE, OTHER ==
[~2020-08-06] MED LIST changes: -ETOMIDATE 2 MG/ML 10 ML INJ IV ONE; -PROPOFOL IV EMULSION 10 MG/ML 20 ML VIAL ONE
--- NOTE | 2020-08-06 14:29 | Diagnostic Imaging Report ---
Chest, 2 views, 08/06/2020. History: Preop. Comparison: None available. Findings: The cardiomediastinal silhouette and pulmonary vasculature are within normal limits. There is left apical pleural thickening. The lungs are clear without evidence of consolidation or pleural effusion. Degenerative changes are present throughout the thoracic spine There are no acute osseous or soft tissue abnormalities. Impression: No acute cardiopulmonary abnormality. Signed by: Sree Schwarz on 08/06/2020 2:26 PM
== END ==
LOC: RAD 13:49
PROVIDERS: ATTEND Internal Medicine
DX: Z01.818 Encounter for other preprocedural examination (principal)
CPT/HCPCS: 71046

== ENCOUNTER → 2021-04-09 | Outpatient (CLI) | payer MEDICARE | LOC: US 09:18 | PROVIDERS: ATTEND Internal Medicine Nephrology | DX: N18.30 Chronic kidney disease, stage 3 unspecified (principal) | CPT/HCPCS: 76770; 76857 ==